=== PATIENT | male | born 1990 | race Caucasian/White ===

== ENCOUNTER 2021-01-04 19:21 | Emergency (ER) | payer SELFPAY ==
[~2021-01-04] VITALS: Ht 175.3 cm; Wt 81.8 kg
[2021-01-04] MEDS ORDERED: OLANZapine 5 MG TABLET PO ONE (20:30)
[2021-01-04 20:43] LABS: BASOPHILS % (AUTO) 0.5 % (0.0-2.0); EOSINOPHILS % (AUTO) 1.1 % (1.0-6.0); HEMATOCRIT 38.9 % (41-53); LYMPHOCYTES # (AUTO) 2.2 K/uL (1.0-4.8); LYMPHOCYTES % (AUTO) 15.9 % (22.0-44.0); MEAN CORPUSCULAR HEMOGLOBIN 28.8 pg (26.0-34.0); MEAN CORPUSCULAR HGB CONC 33.3 G/dL (31.0-37.0); MEAN CORPUSCULAR VOLUME 86 fL (80-100); MONOCYTES # (AUTO) 1.3 K/uL (0.1-1.0); MONOCYTES % (AUTO) 9.5 % (2.0-9.0); NEUTROPHILS # (AUTO) 10.1 K/uL (1.8-7.7); PLATELET COUNT (AUTO) 334 K/uL (150-450); RED CELL DISTRIBUTION WIDTH 13.4 % (11.5-14.5)
[2021-01-04 20:55] LABS: ANION GAP 12 mmol/L (8-16); CALCIUM, TOTAL 9.1 mg/dL (8.8-10.5); CARBON DIOXIDE 26 mmol/L (22-29); CHLORIDE 101 mmol/L (98-107); CREATININE 0.73 mg/dL (0.60-1.30); GLOMERULAR FILTR. RATE CALC > 60 mL/min (>60); GLUCOSE,RANDOM 107 mg/dL (70-110); POTASSIUM 3.5 mmol/L (3.5-5.1); SODIUM SERUM 139 mmol/L (136-145); UREA NITROGEN, BLOOD 10 mg/dL (7-18)
[2021-01-04 21:00] LABS: ALANINE AMINOTRANSFERASE 19 U/L (12-78); ALKALINE PHOSPHATASE 69 U/L (46-116); ASPARTATE AMINOTRANSFERASE 11 U/L (15-37); BILIRUBIN,TOTAL 0.2 mg/dL (0.1-1.0); TOTAL PROTEIN, SERUM 6.9 g/dL (6.4-8.2)
[2021-01-04 21:55] VITALS: BP 136/94
[2021-01-04] MEDS ORDERED: LORazepam 1 MG TABLET PO ONE (22:00)
== END 2021-01-04 22:00 | disposition home or self-care (01) ==
LOC: EMS 19:23
DX: F20.9 Schizophrenia, unspecified (principal); F22 Delusional disorders; G47.00 Insomnia, unspecified; F41.9 Anxiety disorder, unspecified; Z90.89 Acquired absence of other organs
CPT/HCPCS: 80053; 85025; 99284; G0480

== ENCOUNTER 2022-03-02 09:45 | Inpatient (IN) | payer MEDICAID, OTHER ==
[~2022-03-02] VITALS: Ht 175.3 cm; Wt 94.4 kg
[2022-03-02] MEDS ORDERED: OLAN5TAB52 PO (10:15)
[2022-03-02] MEDS ORDERED: DiphenhydrAMINE HCL 25 MG CAPSULE PO ONE (10:45)
[2022-03-02] MEDS ORDERED: OLANZapine 5 MG TABLET PO ONE (10:45)
[2022-03-02] MEDS ORDERED: LORazepam 2 MG TABLET PO ONE (10:45)
[2022-03-02] MEDS ORDERED: ZOLPIDEM TARTRATE 10 MG TABLET PO PRN (11:30)
[2022-03-02 12:24] LABS: COVID AG,FIA SOURCE NASAL SWAB
[2022-03-02] MEDS ORDERED: HALOPERIDOL LACTATE 5 MG/ML VIAL IM ONE (12:30)
[2022-03-02] MEDS ORDERED: DIAZEPAM 5 MG/ML 2 ML SYRINGE IM ONE (12:30)
[2022-03-02] MEDS ORDERED: DiphenhydrAMINE HCL 50 MG/ML VIAL IM ONE (12:30)
[2022-03-02 12:50] LABS: AMPHET/METH SCREEN,URINE NEGATIVE (NEGATIVE); BARBITURATE SCREEN, URINE NEGATIVE (NEGATIVE); BENZODIAZEPINES SCREEN,URINE NEGATIVE (NEGATIVE); CANNABINOID SCREEN,URINE NEGATIVE (NEGATIVE); COCAINE SCREEN,URINE NEGATIVE (NEGATIVE); METHADONE SCREEN, URINE NEGATIVE (NEGATIVE); OPIATE SCREEN,URINE NEGATIVE (NEGATIVE); PHENCYCLIDINE SCREEN,URINE NEGATIVE (NEGATIVE)
[2022-03-02 13:07] LABS: APPEARANCE,URINE HAZY (CLEAR); BILIRUBIN,URINE NEGATIVE (NEGATIVE); GLUCOSE, URINE (UA) NEGATIVE (NEGATIVE); LEUKOCYTE ESTERASE ,URINE NEGATIVE (NEGATIVE); NITRATE,URINE NEGATIVE (NEGATIVE); OCCULT BLOOD,URINE MODERATE (NEGATIVE); PROTEIN,URINE 30-70 mg/dL (NEGATIVE); UROBILINOGEN,URINE <=1.0 mg/dL (<=1.0)
[2022-03-02 13:18] LABS: BACTERIA,URINE Few /HPF (None Seen); SQUAMOUS EPITHELIAL CELL,UR Few /LPF (None Seen); URIC ACID CRYSTALS,URINE Many /LPF (None Seen); WBC,URINE None Seen /HPF (0-5)
[2022-03-02 13:46] LABS: EOSINOPHILS % (AUTO) 0.6 % (1.0-6.0); HEMATOCRIT 37.4 % (41-53); HEMOGLOBIN 12.6 g/dL (13.5-17.5); LYMPHOCYTES # (AUTO) 2.5 K/uL (1.0-4.8); LYMPHOCYTES % (AUTO) 20.4 % (22.0-44.0); MEAN CORPUSCULAR HEMOGLOBIN 28.6 pg (26.0-34.0); MEAN CORPUSCULAR HGB CONC 33.8 G/dL (31.0-37.0); MEAN CORPUSCULAR VOLUME 85 fL (80-100); MONOCYTES # (AUTO) 1.2 K/uL (0.1-1.0); MONOCYTES % (AUTO) 10.1 % (2.0-9.0); NEUTROPHILS # (AUTO) 8.4 K/uL (1.8-7.7); NEUTROPHILS % (AUTO) 67.9 % (40.0-70.0); PLATELET COUNT (AUTO) 375 K/uL (150-450); RED BLOOD CELL COUNT(AUTO) 4.41 MIL/uL (4.50-5.90); RED CELL DISTRIBUTION WIDTH 13.9 % (11.5-14.5)
[2022-03-02 13:55] LABS: ANION GAP 9 mmol/L (8-16); CARBON DIOXIDE 26 mmol/L (22-29); CHLORIDE 109 mmol/L (98-107); CREATININE 0.85 mg/dL (0.60-1.30); GLOMERULAR FILTR. RATE CALC > 60 mL/min (>60); GLUCOSE,RANDOM 116 mg/dL (70-110); POTASSIUM 3.6 mmol/L (3.5-5.1); SODIUM SERUM 144 mmol/L (136-145); UREA NITROGEN, BLOOD 17 mg/dL (7-18)
[2022-03-02 14:00] LABS: ALANINE AMINOTRANSFERASE 47 U/L (12-78); ALBUMIN 3.9 g/dL (3.4-5.0); ALKALINE PHOSPHATASE 70 U/L (46-116); ASPARTATE AMINOTRANSFERASE 29 U/L (15-37); BILIRUBIN,TOTAL 0.3 mg/dL (0.1-1.0); TOTAL PROTEIN, SERUM 7.3 g/dL (6.4-8.2)
[2022-03-02] MEDS: OLANZapine 5 MG TABLET PO ONE ×3 (17:20→17:32)
[2022-03-02] MEDS: LORazepam 1 MG TABLET PO ONE ×3 (17:20→17:31)
[2022-03-02 19:31] VITALS: BP 121/66
[2022-03-03] MEDS ORDERED: GuaiFENesin/D-METHORPHAN [SUGAR-FREE] 200-20MG/10 ML SYRUP UDCUP PO PRN (07:00)
[2022-03-03] MEDS ORDERED: CloNIDine HCL 0.1 MG TABLET PO PRN (07:00)
[2022-03-03] MEDS ORDERED: MAGNESIUM HYDROXIDE SUSPENSION 30 ML UDCUP PO PRN (07:00)
[2022-03-03] MEDS ORDERED: IBUPROFEN 400 MG TABLET PO PRN (07:00)
[2022-03-03] MEDS ORDERED: MAG HYDROX/AL HYDROX/SIMETH ES 30 ML SUSPENSION UDCUP PO PRN (07:00)
[2022-03-03] MEDS ORDERED: ACETAMINOPHEN 325 MG TABLET PO PRN (07:00)
[2022-03-03] MEDS ORDERED: PETROLATUM,WHITE 28 GM JELLY TP PRN (07:00)
[2022-03-03] MEDS ORDERED: NICOTINE 14 MG/24 HOUR PATCH TD PRN (07:00)
[2022-03-03] MEDS ORDERED: ONDANSETRON HCL 4 MG TABLET PO PRN (07:00)
[2022-03-03] MEDS ORDERED: ALBUTEROL SULFATE HFA 90 MCG/PUFF 8 GM INHALER IH PRN (07:00)
[2022-03-03] MEDS ORDERED: DOCUSATE SODIUM 100 MG CAPSULE PO PRN (07:00)
[2022-03-03] MEDS ORDERED: LOPERAMIDE HCL 2 MG CAPSULE PO PRN (07:00)
[2022-03-03] MEDS: LORazepam 2 MG TABLET PO PRN ×2 (08:18→19:10)
[2022-03-03 13:07] VITALS: BP 142/79
[2022-03-03 19:10] VITALS: BP 142/80
[2022-03-03] MEDS: DIVALPROEX SODIUM 500 MG DR TABLET PO SCH (20:04)
[2022-03-03] MEDS: OLANZapine 5 MG TABLET PO SCH (20:04)
[2022-03-04] MEDS: LORazepam 2 MG TABLET PO PRN (05:53)
[2022-03-04 08:00] VITALS: BP 114/65
[2022-03-04] MEDS: DIVALPROEX SODIUM 500 MG DR TABLET PO SCH ×2 (08:22→20:11)
[2022-03-04] MEDS: OLANZapine 5 MG TABLET PO SCH ×2 (08:23→20:11)
[2022-03-04 16:31] VITALS: BP_SYST 130; BP_SYST 134; BP_DIAS 79; BP_DIAS 92
[2022-03-05] MEDS: LORazepam 2 MG TABLET PO PRN (04:19)
[2022-03-05] MEDS: DIVALPROEX SODIUM 500 MG DR TABLET PO SCH ×2 (07:39→20:08)
[2022-03-05] MEDS: OLANZapine 5 MG TABLET PO SCH ×2 (07:39→20:08)
[2022-03-05 08:05] VITALS: BP 153/123
[2022-03-05 16:06] VITALS: BP 116/71
[2022-03-06] MEDS: DIVALPROEX SODIUM 500 MG DR TABLET PO SCH ×2 (07:48→20:01)
[2022-03-06] MEDS: OLANZapine 5 MG TABLET PO SCH ×2 (07:48→20:01)
[2022-03-06 08:03] VITALS: BP 116/59
[2022-03-06 16:01] VITALS: BP 149/80
[2022-03-07 08:05] VITALS: BP 151/96
[2022-03-07] MEDS: OLANZapine 5 MG TABLET PO SCH ×2 (11:47→21:03)
[2022-03-07] MEDS: DIVALPROEX SODIUM 500 MG DR TABLET PO SCH ×2 (11:47→21:03)
[2022-03-07] MEDS: SERTRALINE HCL 50 MG TABLET PO SCH (12:07)
[2022-03-07 17:41] VITALS: BP 142/84
[2022-03-08 08:00] VITALS: BP 134/90
[2022-03-08] MEDS: OLANZapine 5 MG TABLET PO SCH ×2 (08:26→20:09)
[2022-03-08] MEDS: SERTRALINE HCL 50 MG TABLET PO SCH (08:26)
[2022-03-08] MEDS: LORazepam 2 MG TABLET PO PRN ×2 (08:26→19:00)
[2022-03-08] MEDS: DIVALPROEX SODIUM 500 MG DR TABLET PO SCH ×2 (08:26→20:09)
[2022-03-08 16:13] VITALS: BP 139/81
[2022-03-09 08:00] VITALS: BP 164/89
[2022-03-09] MEDS: DIVALPROEX SODIUM 500 MG DR TABLET PO SCH ×2 (08:03→20:09)
[2022-03-09] MEDS: OLANZapine 5 MG TABLET PO SCH ×2 (08:03→20:08)
[2022-03-09] MEDS: SERTRALINE HCL 50 MG TABLET PO SCH (08:03)
[2022-03-09] MEDS: LORazepam 2 MG TABLET PO PRN ×2 (08:03→19:30)
[2022-03-09 16:00] VITALS: BP 153/100
[2022-03-10 06:21] LABS: COVID AG,FIA SOURCE NASAL SWAB
[2022-03-10 08:05] VITALS: BP 134/84
[2022-03-10] MEDS: LORazepam 2 MG TABLET PO PRN ×2 (08:11→19:15)
[2022-03-10] MEDS: OLANZapine 5 MG TABLET PO SCH ×2 (08:11→20:15)
[2022-03-10] MEDS: SERTRALINE HCL 50 MG TABLET PO SCH (08:11)
[2022-03-10] MEDS: DIVALPROEX SODIUM 500 MG DR TABLET PO SCH ×2 (08:11→20:15)
[2022-03-10 16:42] VITALS: BP 146/84
[2022-03-11 08:04] VITALS: BP 130/80
[2022-03-11] MEDS: SERTRALINE HCL 50 MG TABLET PO SCH (10:00)
[2022-03-11] MEDS: OLANZapine 5 MG TABLET PO SCH ×2 (10:00→20:13)
[2022-03-11] MEDS: DIVALPROEX SODIUM 500 MG DR TABLET PO SCH ×2 (10:00→20:13)
[2022-03-11] MEDS: QUEtiapine FUMARATE 100 MG TABLET PO PRN (15:16)
[2022-03-11 16:21] VITALS: BP 146/89
[2022-03-12 08:09] VITALS: BP 120/75
[2022-03-12] MEDS: SERTRALINE HCL 50 MG TABLET PO SCH (08:59)
[2022-03-12] MEDS: OLANZapine 5 MG TABLET PO SCH (08:59)
[2022-03-12] MEDS: DIVALPROEX SODIUM 500 MG DR TABLET PO SCH (08:59)
[2022-03-12] MEDS: QUEtiapine FUMARATE 100 MG TABLET PO PRN (09:48)
[2022-03-12 16:15] VITALS: BP 133/81
== END 2022-03-12 18:20 | disposition home or self-care (01) | DRG 750 ==
LOC: EMS 09:46 → 3EI 16:56 → 3EC 03-03 19:48
PROVIDERS: ADMIT Psychiatry & Neurology Psychiatry; ATTEND Psychiatry & Neurology Psychiatry
DX: F25.0 Schizoaffective disorder, bipolar type (principal); D64.9 Anemia, unspecified; D72.829 Elevated white blood cell count, unspecified; E66.9 Obesity, unspecified; E78.00 Pure hypercholesterolemia, unspecified; Z20.822 Contact with and (suspected) exposure to COVID-19; R73.9 Hyperglycemia, unspecified; Z68.30 Body mass index [BMI] 30.0-30.9, adult
CPT/HCPCS: 80053; 80164; 81001; 85025; 99291; G0480; J1200; J1630

== ENCOUNTER 2022-03-26 19:31 | Emergency (ER) | payer MEDICAID, OTHER ==
[~2022-03-26] VITALS: Ht 175.3 cm; Wt 96.3 kg
[2022-03-26] MEDS ORDERED: OLANZapine 5 MG TABLET PO ONE (21:15)
[2022-03-26] MEDS ORDERED: SERTRALINE HCL 50 MG TABLET PO ONE (21:15)
[2022-03-26 21:17] LABS: COVID AG,FIA SOURCE NASOPHARYNGEAL
[2022-03-26 21:20] LABS: BASOPHILS % (AUTO) 0.4 % (0.0-2.0); EOSINOPHILS % (AUTO) 0.2 % (1.0-6.0); HEMATOCRIT 41.7 % (41-53); HEMOGLOBIN 13.9 g/dL (13.5-17.5); LYMPHOCYTES # (AUTO) 1.8 K/uL (1.0-4.8); LYMPHOCYTES % (AUTO) 11.7 % (22.0-44.0); MEAN CORPUSCULAR HEMOGLOBIN 28.4 pg (26.0-34.0); MEAN CORPUSCULAR HGB CONC 33.4 G/dL (31.0-37.0); MEAN CORPUSCULAR VOLUME 85 fL (80-100); MONOCYTES # (AUTO) 0.8 K/uL (0.1-1.0); MONOCYTES % (AUTO) 5.3 % (2.0-9.0); NEUTROPHILS # (AUTO) 12.6 K/uL (1.8-7.7); NEUTROPHILS % (AUTO) 82.4 % (40.0-70.0); PLATELET COUNT (AUTO) 281 K/uL (150-450); RED BLOOD CELL COUNT(AUTO) 4.91 MIL/uL (4.50-5.90); RED CELL DISTRIBUTION WIDTH 13.8 % (11.5-14.5)
[2022-03-26 21:27] LABS: ANION GAP 16 mmol/L (8-16); CALCIUM, TOTAL 9.7 mg/dL (8.8-10.5); CARBON DIOXIDE 22 mmol/L (22-29); CHLORIDE 102 mmol/L (98-107); CREATININE 0.93 mg/dL (0.60-1.30); GLUCOSE,RANDOM 117 mg/dL (70-110); POTASSIUM 3.2 mmol/L (3.5-5.1); SODIUM SERUM 140 mmol/L (136-145); UREA NITROGEN, BLOOD 9 mg/dL (7-18)
[2022-03-26 21:33] LABS: GLOMERULAR FILTR. RATE CALC > 60 mL/min (>60)
[2022-03-26 21:34] LABS: ALANINE AMINOTRANSFERASE 29 U/L (12-78); ALBUMIN 4.5 g/dL (3.4-5.0); ALKALINE PHOSPHATASE 80 U/L (46-116); ASPARTATE AMINOTRANSFERASE 15 U/L (15-37); BILIRUBIN,TOTAL 0.2 mg/dL (0.1-1.0); TOTAL PROTEIN, SERUM 8.2 g/dL (6.4-8.2)
[2022-03-26 23:02] VITALS: BP 146/76
[2022-04-11] MEDS ORDERED: OLAN5TAB52 PO (05:12)
[2022-04-11] MEDS ORDERED: SERT-440 PO (05:12)
[2022-04-11] MEDS ORDERED: DIVA-112 PO (05:12)
== END 2022-03-26 23:29 | disposition home or self-care (01) ==
LOC: EMS 19:32
DX: F20.9 Schizophrenia, unspecified (principal); Z20.822 Contact with and (suspected) exposure to COVID-19
CPT/HCPCS: 99285; 87426; 80053; 85025; 36415; G0480

== ENCOUNTER 2022-03-27 11:48 | Inpatient (IN) | payer MEDICAID, OTHER ==
[~2022-03-27] VITALS: Ht 175.3 cm; Wt 94.9 kg
[2022-03-27 15:37] LABS: BASOPHILS % (AUTO) 0.2 % (0.0-2.0); EOSINOPHILS % (AUTO) 0.1 % (1.0-6.0); HEMATOCRIT 43.2 % (41-53); HEMOGLOBIN 14.3 g/dL (13.5-17.5); LYMPHOCYTES # (AUTO) 1.4 K/uL (1.0-4.8); LYMPHOCYTES % (AUTO) 7.2 % (22.0-44.0); MEAN CORPUSCULAR HEMOGLOBIN 28.2 pg (26.0-34.0); MEAN CORPUSCULAR VOLUME 85 fL (80-100); NEUTROPHILS # (AUTO) 17.1 K/uL (1.8-7.7); PLATELET COUNT (AUTO) 322 K/uL (150-450); RED BLOOD CELL COUNT(AUTO) 5.06 MIL/uL (4.50-5.90); RED CELL DISTRIBUTION WIDTH 13.9 % (11.5-14.5)
[2022-03-27 15:38] LABS: NEUTROPHILS % (AUTO) 87.5 % (40.0-70.0)
[2022-03-27 15:41] LABS: ANION GAP 12 mmol/L (8-16); CALCIUM, TOTAL 9.8 mg/dL (8.8-10.5); CARBON DIOXIDE 24 mmol/L (22-29); CHLORIDE 99 mmol/L (98-107); CREATININE 0.91 mg/dL (0.60-1.30); GLUCOSE,RANDOM 115 mg/dL (70-110); POTASSIUM 3.6 mmol/L (3.5-5.1); SODIUM SERUM 135 mmol/L (136-145); UREA NITROGEN, BLOOD 12 mg/dL (7-18)
[2022-03-27 15:45] LABS: GLOMERULAR FILTR. RATE CALC > 60 mL/min (>60)
[2022-03-27 15:47] LABS: ALANINE AMINOTRANSFERASE 30 U/L (12-78); ALBUMIN 4.7 g/dL (3.4-5.0); ALKALINE PHOSPHATASE 86 U/L (46-116); ASPARTATE AMINOTRANSFERASE 18 U/L (15-37); BILIRUBIN,TOTAL 0.5 mg/dL (0.1-1.0); TOTAL PROTEIN, SERUM 8.7 g/dL (6.4-8.2)
[2022-03-27 15:48] LABS: PLATELET MORPHOLOGY COMMENT GIANT PLTS PRESENT
[2022-03-27 16:09] LABS: COVID AG,FIA SOURCE NASOPHARYNGEAL
[2022-03-27] MEDS ORDERED: HALOPERIDOL LACTATE 5 MG/ML VIAL IM ONE (17:30)
[2022-03-27] MEDS ORDERED: DiphenhydrAMINE HCL 50 MG/ML VIAL IM ONE (17:30)
[2022-03-27] MEDS ORDERED: LORazepam 1 MG TABLET PO ONE (17:30)
[2022-03-27] MEDS: HALOPERIDOL 5 MG TABLET PO PRN (20:00)
[2022-03-27] MEDS: LORazepam 2 MG TABLET PO PRN (20:00)
[2022-03-27 21:26] VITALS: BP 119/60
[2022-03-28] MEDS ORDERED: NICOTINE 14 MG/24 HOUR PATCH TD PRN (06:15)
[2022-03-28] MEDS ORDERED: CloNIDine HCL 0.1 MG TABLET PO PRN (06:15)
[2022-03-28] MEDS ORDERED: ALBUTEROL SULFATE HFA 90 MCG/PUFF 8 GM INHALER IH PRN (06:15)
[2022-03-28] MEDS ORDERED: MAG HYDROX/AL HYDROX/SIMETH ES 30 ML SUSPENSION UDCUP PO PRN (06:15)
[2022-03-28] MEDS ORDERED: ONDANSETRON HCL 4 MG TABLET PO PRN (06:15)
[2022-03-28] MEDS ORDERED: MAGNESIUM HYDROXIDE SUSPENSION 30 ML UDCUP PO PRN (06:15)
[2022-03-28] MEDS ORDERED: GuaiFENesin/D-METHORPHAN [SUGAR-FREE] 200-20MG/10 ML SYRUP UDCUP PO PRN (06:15)
[2022-03-28] MEDS ORDERED: PETROLATUM,WHITE 28 GM JELLY TP PRN (06:15)
[2022-03-28] MEDS ORDERED: ACETAMINOPHEN 325 MG TABLET PO PRN (06:15)
[2022-03-28] MEDS ORDERED: IBUPROFEN 400 MG TABLET PO PRN (06:15)
[2022-03-28] MEDS ORDERED: DOCUSATE SODIUM 100 MG CAPSULE PO PRN (06:15)
[2022-03-28] MEDS: HALOPERIDOL 5 MG TABLET PO PRN ×3 (06:50→16:34)
[2022-03-28] MEDS: LORazepam 2 MG TABLET PO PRN ×3 (06:50→16:34)
[2022-03-28] MEDS: BACITRACIN 28 GM OINTMENT TP SCH ×3 (08:24→16:34)
[2022-03-28] MEDS: OLANZapine 5 MG TABLET PO SCH ×2 (09:51→20:30)
[2022-03-28] MEDS: SERTRALINE HCL 50 MG TABLET PO SCH (09:51)
[2022-03-28 13:30] VITALS: BP 116/74
[2022-03-28] MEDS: DIVALPROEX SODIUM 500 MG DR TABLET PO SCH (20:30)
[2022-03-28] MEDS: ZOLPIDEM TARTRATE 10 MG TABLET PO PRN (20:30)
[2022-03-28] MEDS: LOPERAMIDE HCL 2 MG CAPSULE PO PRN (23:38)
[2022-03-29] VITALS: BP 109/67
[2022-03-29 06:50] LABS: APPEARANCE,URINE TURBID (CLEAR); BILIRUBIN,URINE NEGATIVE (NEGATIVE); GLUCOSE, URINE (UA) NEGATIVE (NEGATIVE); LEUKOCYTE ESTERASE ,URINE SMALL (NEGATIVE); NITRATE,URINE NEGATIVE (NEGATIVE); OCCULT BLOOD,URINE NEGATIVE (NEGATIVE); PH,URINE 6.5 (5.0-8.0); PROTEIN,URINE 30-70 mg/dL (NEGATIVE); SPECIFIC GRAVITIY, URINE 1.033 (1.003-1.030); UROBILINOGEN,URINE <=1.0 mg/dL (<=1.0)
[2022-03-29] MEDS: LOPERAMIDE HCL 2 MG CAPSULE PO PRN ×5 (06:54→22:19)
[2022-03-29 07:06] LABS: RBC,URINE None Seen /HPF (0-2)
[2022-03-29 07:07] LABS: AMORPHOUS SEDIMENT,UR Many /LPF (None Seen); BACTERIA,URINE None Seen /HPF (None Seen)
[2022-03-29 07:21] LABS: AMPHET/METH SCREEN,URINE NEGATIVE (NEGATIVE); BARBITURATE SCREEN, URINE NEGATIVE (NEGATIVE); BENZODIAZEPINES SCREEN,URINE NEGATIVE (NEGATIVE); CANNABINOID SCREEN,URINE NEGATIVE (NEGATIVE); COCAINE SCREEN,URINE NEGATIVE (NEGATIVE); METHADONE SCREEN, URINE NEGATIVE (NEGATIVE); OPIATE SCREEN,URINE NEGATIVE (NEGATIVE)
[2022-03-29 07:23] LABS: PHENCYCLIDINE SCREEN,URINE NEGATIVE (NEGATIVE)
[2022-03-29 08:27] VITALS: BP 133/77
[2022-03-29] MEDS: LORazepam 2 MG TABLET PO PRN ×2 (08:34→12:56)
[2022-03-29] MEDS: OLANZapine 5 MG TABLET PO SCH ×2 (08:34→21:00)
[2022-03-29] MEDS: DIVALPROEX SODIUM 500 MG DR TABLET PO SCH ×2 (08:34→21:00)
[2022-03-29] MEDS: HALOPERIDOL 5 MG TABLET PO PRN ×2 (08:34→12:56)
[2022-03-29] MEDS: SERTRALINE HCL 50 MG TABLET PO SCH (08:34)
[2022-03-29] MEDS: BACITRACIN 28 GM OINTMENT TP SCH ×3 (08:35→16:24)
[2022-03-29 21:32] VITALS: BP 133/79
[2022-03-29] MEDS ORDERED: LOPERAMIDE HCL 2 MG CAPSULE PO PRN (23:45)
[2022-03-30 04:35] VITALS: BP 145/89
[2022-03-30] MEDS: BACITRACIN 28 GM OINTMENT TP SCH ×4 (10:00→17:11)
[2022-03-30] MEDS: OLANZapine 5 MG TABLET PO SCH ×2 (12:50→20:58)
[2022-03-30] MEDS: DIVALPROEX SODIUM 500 MG DR TABLET PO SCH ×2 (12:50→20:58)
[2022-03-30] MEDS: SERTRALINE HCL 50 MG TABLET PO SCH (12:51)
[2022-03-30 13:55] VITALS: BP 125/64
[2022-03-30 20:30] VITALS: BP 123/69
[2022-03-30] MEDS: LORazepam 2 MG TABLET PO PRN (20:58)
[2022-03-31] MEDS: OLANZapine 5 MG TABLET PO SCH ×2 (08:25→20:25)
[2022-03-31] MEDS: DIVALPROEX SODIUM 500 MG DR TABLET PO SCH ×2 (08:25→20:25)
[2022-03-31] MEDS: LORazepam 2 MG TABLET PO PRN ×2 (08:25→20:25)
[2022-03-31] MEDS: HALOPERIDOL 5 MG TABLET PO PRN (08:25)
[2022-03-31] MEDS: BACITRACIN 28 GM OINTMENT TP SCH ×3 (08:29→16:19)
[2022-03-31] MEDS: SERTRALINE HCL 50 MG TABLET PO SCH (08:51)
[2022-03-31 10:22] VITALS: BP 130/62
[2022-03-31 20:27] VITALS: BP 128/68
[2022-04-01 08:46] VITALS: BP 129/60
[2022-04-01] MEDS: BACITRACIN 28 GM OINTMENT TP SCH ×3 (09:03→17:00)
[2022-04-01] MEDS: SERTRALINE HCL 50 MG TABLET PO SCH (09:03)
[2022-04-01] MEDS: DIVALPROEX SODIUM 500 MG DR TABLET PO SCH ×2 (09:03→20:25)
[2022-04-01] MEDS: OLANZapine 5 MG TABLET PO SCH ×2 (09:03→20:25)
[2022-04-01] MEDS: LORazepam 2 MG TABLET PO PRN ×2 (09:04→20:25)
[2022-04-01 20:18] VITALS: BP 120/66
[2022-04-01] MEDS: ZOLPIDEM TARTRATE 10 MG TABLET PO PRN (20:42)
[2022-04-02 08:30] VITALS: BP 117/70
[2022-04-02] MEDS: OLANZapine 5 MG TABLET PO SCH ×2 (08:36→20:44)
[2022-04-02] MEDS: DIVALPROEX SODIUM 500 MG DR TABLET PO SCH ×2 (08:36→20:44)
[2022-04-02] MEDS: SERTRALINE HCL 50 MG TABLET PO SCH (08:36)
[2022-04-02] MEDS: BACITRACIN 28 GM OINTMENT TP SCH ×3 (08:37→16:56)
[2022-04-02] MEDS: HALOPERIDOL 5 MG TABLET PO PRN (17:01)
[2022-04-02] MEDS: LORazepam 2 MG TABLET PO PRN (17:01)
[2022-04-02 20:12] VITALS: BP 120/62
[2022-04-02] MEDS: ZOLPIDEM TARTRATE 10 MG TABLET PO PRN (20:44)
[2022-04-03 07:06] LABS: BASOPHILS % (AUTO) 0.8 % (0.0-2.0); HEMATOCRIT 40.7 % (41-53); HEMOGLOBIN 13.6 g/dL (13.5-17.5); LYMPHOCYTES # (AUTO) 2.8 K/uL (1.0-4.8); LYMPHOCYTES % (AUTO) 33.3 % (22.0-44.0); MEAN CORPUSCULAR HEMOGLOBIN 28.7 pg (26.0-34.0); MEAN CORPUSCULAR HGB CONC 33.3 G/dL (31.0-37.0); MEAN CORPUSCULAR VOLUME 86 fL (80-100); MONOCYTES # (AUTO) 0.5 K/uL (0.1-1.0); MONOCYTES % (AUTO) 6.5 % (2.0-9.0); NEUTROPHILS # (AUTO) 4.5 K/uL (1.8-7.7); NEUTROPHILS % (AUTO) 54.4 % (40.0-70.0); PLATELET COUNT (AUTO) 252 K/uL (150-450); RED BLOOD CELL COUNT(AUTO) 4.72 MIL/uL (4.50-5.90); RED CELL DISTRIBUTION WIDTH 13.8 % (11.5-14.5)
[2022-04-03] MEDS: OLANZapine 5 MG TABLET PO SCH ×2 (08:21→20:56)
[2022-04-03] MEDS: DIVALPROEX SODIUM 500 MG DR TABLET PO SCH ×2 (08:21→20:56)
[2022-04-03] MEDS: SERTRALINE HCL 50 MG TABLET PO SCH (08:21)
[2022-04-03] MEDS: LORazepam 2 MG TABLET PO PRN (08:21)
[2022-04-03] MEDS: BACITRACIN 28 GM OINTMENT TP SCH ×3 (08:21→17:01)
[2022-04-03 08:35] VITALS: BP 109/64
[2022-04-03] MEDS ORDERED: SERTRALINE HCL 50 MG TABLET PO ONE (11:00)
[2022-04-03] MEDS: HALOPERIDOL 5 MG TABLET PO PRN (11:35)
[2022-04-03 15:46] LABS: GLUCOMETER DEV NAME(LOC) POC.BV
[2022-04-03 20:37] VITALS: BP 129/74
[2022-04-03] MEDS: ZOLPIDEM TARTRATE 10 MG TABLET PO PRN (20:56)
[2022-04-04] MEDS: DIVALPROEX SODIUM 500 MG DR TABLET PO SCH ×2 (09:05→20:44)
[2022-04-04] MEDS: LORazepam 2 MG TABLET PO PRN ×2 (09:06→18:13)
[2022-04-04] MEDS: SERTRALINE HCL 100 MG TABLET PO SCH (09:06)
[2022-04-04] MEDS: OLANZapine 5 MG TABLET PO SCH ×2 (09:10→20:44)
[2022-04-04] MEDS: BACITRACIN 28 GM OINTMENT TP SCH ×3 (09:10→17:03)
[2022-04-04 09:42] VITALS: BP 125/77
[2022-04-04] MEDS: HALOPERIDOL 5 MG TABLET PO PRN (18:13)
[2022-04-04 20:17] VITALS: BP 134/89
[2022-04-04] MEDS: ZOLPIDEM TARTRATE 10 MG TABLET PO PRN (20:45)
[2022-04-05] MEDS: BACITRACIN 28 GM OINTMENT TP SCH ×3 (08:23→16:57)
[2022-04-05] MEDS: DIVALPROEX SODIUM 500 MG DR TABLET PO SCH ×2 (08:23→20:14)
[2022-04-05] MEDS: SERTRALINE HCL 100 MG TABLET PO SCH (08:23)
[2022-04-05] MEDS: LORazepam 2 MG TABLET PO PRN ×2 (08:23→20:14)
[2022-04-05] MEDS: OLANZapine 5 MG TABLET PO SCH ×2 (08:23→20:14)
[2022-04-05 08:27] VITALS: BP 109/65
[2022-04-05 20:00] VITALS: BP 106/64
[2022-04-06 08:06] VITALS: BP 125/82
[2022-04-06] MEDS: SERTRALINE HCL 100 MG TABLET PO SCH (08:22)
[2022-04-06] MEDS: OLANZapine 5 MG TABLET PO SCH ×2 (08:22→21:12)
[2022-04-06] MEDS: DIVALPROEX SODIUM 500 MG DR TABLET PO SCH ×2 (08:22→21:12)
[2022-04-06] MEDS: BACITRACIN 28 GM OINTMENT TP SCH ×3 (08:23→16:10)
[2022-04-06] MEDS: LORazepam 2 MG TABLET PO PRN (16:10)
[2022-04-07] VITALS: BP 117/68
[2022-04-07 09:32] VITALS: BP 111/70
[2022-04-07] MEDS: OLANZapine 5 MG TABLET PO SCH ×2 (09:53→20:51)
[2022-04-07] MEDS: DIVALPROEX SODIUM 500 MG DR TABLET PO SCH ×2 (09:53→20:51)
[2022-04-07] MEDS: BACITRACIN 28 GM OINTMENT TP SCH ×3 (09:53→16:39)
[2022-04-07] MEDS: SERTRALINE HCL 100 MG TABLET PO SCH (09:53)
[2022-04-07 17:40] VITALS: BP 109/61
[2022-04-07] MEDS: LORazepam 2 MG TABLET PO PRN (18:44)
[2022-04-07 23:37] VITALS: BP 105/60
[2022-04-08 08:16] VITALS: BP 104/60
[2022-04-08] MEDS: SERTRALINE HCL 100 MG TABLET PO SCH (08:26)
[2022-04-08] MEDS: DIVALPROEX SODIUM 500 MG DR TABLET PO SCH ×2 (08:26→20:25)
[2022-04-08] MEDS: OLANZapine 5 MG TABLET PO SCH ×2 (08:26→20:25)
[2022-04-08] MEDS: LORazepam 2 MG TABLET PO PRN ×2 (08:27→19:21)
[2022-04-08] MEDS: BACITRACIN 28 GM OINTMENT TP SCH ×3 (08:27→17:14)
[2022-04-08 20:23] VITALS: BP 126/82
[2022-04-08] MEDS: ZOLPIDEM TARTRATE 10 MG TABLET PO PRN (20:25)
[2022-04-09] MEDS: SERTRALINE HCL 100 MG TABLET PO SCH (08:12)
[2022-04-09] MEDS: DIVALPROEX SODIUM 500 MG DR TABLET PO SCH ×2 (08:12→20:26)
[2022-04-09] MEDS: BACITRACIN 28 GM OINTMENT TP SCH ×3 (08:12→16:56)
[2022-04-09] MEDS: OLANZapine 5 MG TABLET PO SCH ×2 (08:13→20:26)
[2022-04-09] MEDS: LORazepam 2 MG TABLET PO PRN ×2 (08:13→18:40)
[2022-04-09 08:17] VITALS: BP 114/78
[2022-04-09] MEDS: HALOPERIDOL 5 MG TABLET PO PRN (18:40)
[2022-04-09] MEDS: ZOLPIDEM TARTRATE 10 MG TABLET PO PRN (20:26)
[2022-04-09 20:44] VITALS: BP 122/72
[2022-04-10 08:19] VITALS: BP 100/60
[2022-04-10] MEDS: BACITRACIN 28 GM OINTMENT TP SCH ×3 (08:24→17:05)
[2022-04-10] MEDS: OLANZapine 5 MG TABLET PO SCH (08:24)
[2022-04-10] MEDS: DIVALPROEX SODIUM 500 MG DR TABLET PO SCH (08:25)
[2022-04-10] MEDS: SERTRALINE HCL 100 MG TABLET PO SCH (08:25)
[2022-04-10 08:40] VITALS: BP 108/70
[2022-04-10] MEDS: LORazepam 2 MG TABLET PO PRN (08:43)
[2022-04-10] MEDS ORDERED: OLAN5TAB52 PO (12:11)
[2022-04-10] MEDS ORDERED: SERT-162 PO (12:11)
[2022-04-10] MEDS ORDERED: DIVA-112 PO (12:11)
[2022-04-11] MEDS ORDERED: SERT-440 PO (05:12)
[2022-04-11] MEDS ORDERED: OLAN5TAB52 PO (05:12)
[2022-04-11] MEDS ORDERED: DIVA-112 PO (05:12)
== END 2022-04-10 18:26 | disposition home or self-care (01) | DRG 750 ==
LOC: EMS 11:48 → B3A 19:04 → UNDOADMIN 19:04 → B3A 21:04
PROVIDERS: ADMIT Psychiatry & Neurology Psychiatry; ATTEND Psychiatry & Neurology Psychiatry
DX: F25.0 Schizoaffective disorder, bipolar type (principal); E87.1 Hypo-osmolality and hyponatremia; R45.851 Suicidal ideations; Z20.822 Contact with and (suspected) exposure to COVID-19; D72.829 Elevated white blood cell count, unspecified; E78.5 Hyperlipidemia, unspecified; K21.9 Gastro-esophageal reflux disease without esophagitis; F10.10 Alcohol abuse, uncomplicated; F19.10 Other psychoactive substance abuse, uncomplicated; E78.00 Pure hypercholesterolemia, unspecified; Y90.9 Presence of alcohol in blood, level not specified; Z59.00 Homelessness unspecified; Z79.899 Other long term (current) drug therapy
CPT/HCPCS: 80053; 80164; 80307; 81001; 85025; 87081; 99285; G0480; J1200; J1630; Q0162

== ENCOUNTER 2022-03-30 00:37 | Emergency (ER) | payer MEDICAID, OTHER ==
[~2022-03-30] VITALS: Ht 172.7 cm; Wt 84.1 kg
[2022-03-30 01:26] LABS: COVID AG,FIA SOURCE NASOPHARYNGEAL
[2022-03-30 01:28] LABS: BASOPHILS % (AUTO) 1.1 % (0.0-2.0); EOSINOPHILS % (AUTO) 2.3 % (1.0-6.0); HEMATOCRIT 43.5 % (41-53); HEMOGLOBIN 14.6 g/dL (13.5-17.5); LYMPHOCYTES # (AUTO) 2.5 K/uL (1.0-4.8); LYMPHOCYTES % (AUTO) 20.2 % (22.0-44.0); MEAN CORPUSCULAR HEMOGLOBIN 28.5 pg (26.0-34.0); MEAN CORPUSCULAR HGB CONC 33.5 G/dL (31.0-37.0); MEAN CORPUSCULAR VOLUME 85 fL (80-100); MONOCYTES # (AUTO) 0.8 K/uL (0.1-1.0); MONOCYTES % (AUTO) 6.4 % (2.0-9.0); NEUTROPHILS # (AUTO) 8.7 K/uL (1.8-7.7); PLATELET COUNT (AUTO) 333 K/uL (150-450); RED BLOOD CELL COUNT(AUTO) 5.11 MIL/uL (4.50-5.90); RED CELL DISTRIBUTION WIDTH 13.6 % (11.5-14.5)
[2022-03-30 01:39] LABS: ANION GAP 11 mmol/L (8-16); CALCIUM, TOTAL 9.1 mg/dL (8.8-10.5); CARBON DIOXIDE 25 mmol/L (22-29); CHLORIDE 102 mmol/L (98-107); CREATININE 0.84 mg/dL (0.60-1.30); GLUCOSE,RANDOM 110 mg/dL (70-110); POTASSIUM 3.2 mmol/L (3.5-5.1); SODIUM SERUM 138 mmol/L (136-145); UREA NITROGEN, BLOOD 12 mg/dL (7-18)
[2022-03-30 01:42] LABS: GLOMERULAR FILTR. RATE CALC > 60 mL/min (>60)
[2022-03-30 01:45] LABS: ALANINE AMINOTRANSFERASE 23 U/L (12-78); ALBUMIN 4.3 g/dL (3.4-5.0); ALKALINE PHOSPHATASE 82 U/L (46-116); ASPARTATE AMINOTRANSFERASE 13 U/L (15-37); BILIRUBIN,TOTAL 0.3 mg/dL (0.1-1.0); TOTAL PROTEIN, SERUM 7.9 g/dL (6.4-8.2)
[2022-03-30] MEDS ORDERED: DIAZEPAM 5 MG TABLET PO ONE (05:15)
[2022-03-30 11:53] VITALS: BP 119/69
[2022-04-11] MEDS ORDERED: DIVA-112 PO (05:12)
[2022-04-11] MEDS ORDERED: OLAN5TAB52 PO (05:12)
[2022-04-11] MEDS ORDERED: SERT-440 PO (05:12)
== END 2022-03-30 12:20 | disposition home or self-care (01) ==
LOC: EMS 00:42
DX: R19.7 Diarrhea, unspecified (principal); F20.9 Schizophrenia, unspecified; Z20.822 Contact with and (suspected) exposure to COVID-19; Z90.49 Acquired absence of other specified parts of digestive tract
CPT/HCPCS: 74176; 80053; 85025; 87040; 99284; 99285

== ENCOUNTER 2022-12-16 18:17 | Inpatient (IN) | payer MEDICAID, OTHER ==
[~2022-12-16] VITALS: Ht 175.3 cm; Wt 110.3 kg
[~2022-12-16 18:17] MED LIST: DIVA-112 PO; OLAN5TAB52 PO; SERT-162 PO; SERT-440 PO
[2022-12-16 19:33] LABS: COVID AG,FIA SOURCE NASOPHARYNGEAL
[2022-12-16 19:34] LABS: BASOPHILS % (AUTO) 0.9 % (0.0-2.0); EOSINOPHILS % (AUTO) 0.9 % (1.0-6.0); HEMOGLOBIN 15.4 g/dL (13.5-17.5); LYMPHOCYTES # (AUTO) 2.3 K/uL (1.0-4.8); LYMPHOCYTES % (AUTO) 16.2 % (22.0-44.0); MEAN CORPUSCULAR HEMOGLOBIN 26.6 pg (26.0-34.0); MEAN CORPUSCULAR HGB CONC 32.8 G/dL (31.0-37.0); MEAN CORPUSCULAR VOLUME 81 fL (80-100); MONOCYTES # (AUTO) 0.8 K/uL (0.1-1.0); MONOCYTES % (AUTO) 5.7 % (2.0-9.0); NEUTROPHILS % (AUTO) 76.3 % (40.0-70.0); PLATELET COUNT (AUTO) 350 K/uL (150-450); RED CELL DISTRIBUTION WIDTH 14.5 % (11.5-14.5)
[2022-12-16 19:43] LABS: ANION GAP 9 mmol/L (8-16); CALCIUM, TOTAL 9.9 mg/dL (8.8-10.5); CARBON DIOXIDE 25 mmol/L (22-29); CHLORIDE 104 mmol/L (98-107); CREATININE 1.12 mg/dL (0.60-1.30); GLOMERULAR FILTR. RATE CALC > 60 mL/min (>60); GLUCOSE,RANDOM 147 mg/dL (70-110); POTASSIUM 3.7 mmol/L (3.5-5.1); SODIUM SERUM 138 mmol/L (136-145); UREA NITROGEN, BLOOD 15 mg/dL (7-18)
[2022-12-16 19:49] LABS: ALANINE AMINOTRANSFERASE 32 U/L (12-78); ALBUMIN 4.5 g/dL (3.4-5.0); ALKALINE PHOSPHATASE 108 U/L (46-116); ASPARTATE AMINOTRANSFERASE 18 U/L (15-37); BILIRUBIN,TOTAL 0.2 mg/dL (0.1-1.0); TOTAL PROTEIN, SERUM 8.4 g/dL (6.4-8.2)
[2022-12-16 20:00] LABS: VALPROIC ACID < 3 mcg/mL (50-100)
[2022-12-16] MEDS ORDERED: HALOPERIDOL 5 MG TABLET PO PRN (20:00)
[2022-12-16] MEDS: LORazepam 2 MG TABLET PO PRN (22:25)
[2022-12-16] MEDS: ZOLPIDEM TARTRATE 10 MG TABLET PO PRN (22:25)
[2022-12-16] MEDS ORDERED: CloNIDine HCL 0.1 MG TABLET PO PRN (22:45)
[2022-12-17 00:36] VITALS: BP 130/75
[2022-12-17 08:01] VITALS: BP 145/85
[2022-12-17 08:02] LABS: HEMOGLOBIN A1C 5.8 % (3.8-5.6)
[2022-12-17] MEDS ORDERED: HALOPERIDOL LACTATE 5 MG/ML VIAL ONE (08:13)
[2022-12-17] MEDS ORDERED: LORazepam 2 MG/ML VIAL ONE (08:13)
[2022-12-17] MEDS ORDERED: DiphenhydrAMINE HCL 50 MG/ML VIAL ONE (08:13)
[2022-12-17 08:16] LABS: CHOL/HDL RATIO 5.4 (4.2-7.3); THYROID STIMULATING HORMONE 3.12 uIU/mL (0.36-3.74)
[2022-12-17] MEDS ORDERED: LORazepam 2 MG/ML VIAL IM ONE ×2 (08:30)
[2022-12-17] MEDS ORDERED: DiphenhydrAMINE HCL 50 MG/ML VIAL IM ONE ×2 (08:30)
[2022-12-17] MEDS ORDERED: HALOPERIDOL LACTATE 5 MG/ML VIAL IM ONE ×2 (08:30)
[2022-12-17] MEDS ORDERED: GuaiFENesin/D-METHORPHAN [SUGAR-FREE] 200-20MG/10 ML SYRUP UDCUP PO PRN (16:15)
[2022-12-17] MEDS ORDERED: TUBERCULIN, PURIFIED PROTEIN DERIVATIVE 5 TU/0.1 ML SYRINGE ID ONE (16:15)
[2022-12-17] MEDS ORDERED: LOPERAMIDE HCL 2 MG CAPSULE PO PRN (16:15)
[2022-12-17] MEDS ORDERED: PROMETHAZINE HCL 25 MG TABLET PO PRN (16:15)
[2022-12-17] MEDS ORDERED: MAG HYDROX/AL HYDROX/SIMETH ES 30 ML SUSPENSION UDCUP PO PRN (16:15)
[2022-12-17] MEDS ORDERED: ACETAMINOPHEN 325 MG TABLET PO PRN (16:15)
[2022-12-17] MEDS ORDERED: MAGNESIUM HYDROXIDE SUSPENSION 30 ML UDCUP PO PRN (16:15)
[2022-12-17] MEDS: LORazepam 2 MG TABLET PO PRN ×2 (17:05→21:05)
[2022-12-17] MEDS: THIAMINE 100 MG TABLET PO SCH (17:05)
[2022-12-17] MEDS: HydrOXYzine PAMOATE 50 MG CAPSULE PO PRN (17:08)
[2022-12-17 20:04] VITALS: BP 140/82
[2022-12-17] MEDS ORDERED: OLANZapine 5 MG RAPDIS TABLET PO SCH (21:00)
[2022-12-17] MEDS: MELATONIN 5 MG TABLET PO SCH (21:01)
[2022-12-17] MEDS: ZOLPIDEM TARTRATE 10 MG TABLET PO PRN (21:01)
[2022-12-18] MEDS ORDERED: HALOPERIDOL LACTATE 5 MG/ML VIAL ONE (07:36)
[2022-12-18] MEDS ORDERED: LORazepam 2 MG/ML VIAL ONE (07:36)
[2022-12-18] MEDS ORDERED: DiphenhydrAMINE HCL 50 MG/ML VIAL ONE (07:37)
[2022-12-18] MEDS ORDERED: LORazepam 2 MG/ML VIAL IM ONE (07:45)
[2022-12-18] MEDS ORDERED: DiphenhydrAMINE HCL 50 MG/ML VIAL IM ONE (07:45)
[2022-12-18] MEDS ORDERED: HALOPERIDOL LACTATE 5 MG/ML VIAL IM ONE (07:45)
[2022-12-18 08:06] LABS: HEPATITIS C AB (EIA) Non Reactive (Non Reactive)
[2022-12-18 08:08] LABS: HEMOGLOBIN A1C 5.8 % (3.8-5.6)
[2022-12-18] MEDS: MULTIVITAMINS WITH MINERALS, THERAPEUTIC TABLET PO SCH (08:08)
[2022-12-18] MEDS: OMEGA-3/DHA/EPA/FISH OIL 1,000 MG CAPSULE PO SCH (08:08)
[2022-12-18] MEDS: DIVALPROEX SODIUM 500 MG ER TABLET PO SCH (08:08)
[2022-12-18] MEDS: THIAMINE 100 MG TABLET PO SCH ×2 (08:08→17:02)
[2022-12-18] MEDS: FOLIC ACID 1 MG TABLET PO SCH (08:08)
[2022-12-18] MEDS: NALTREXONE HCL 50 MG TABLET PO SCH (08:08)
[2022-12-18 08:27] LABS: CHOL/HDL RATIO 5.6 (4.2-7.3); FREE T4 (FREE THYROXINE) 0.93 ng/dL (0.76-1.46); THYROID STIMULATING HORMONE 2.5 uIU/mL (0.36-3.74)
[2022-12-18 08:29] VITALS: BP 116/83
[2022-12-18] MEDS ORDERED: FLUoxetine HCL 20 MG CAPSULE PO SCH (09:00)
[2022-12-18] MEDS: LORazepam 2 MG TABLET PO PRN ×2 (17:02→21:02)
[2022-12-18] MEDS: HydrOXYzine PAMOATE 50 MG CAPSULE PO PRN (17:02)
[2022-12-18 20:06] VITALS: BP 130/78
[2022-12-18] MEDS: OLANZapine 10 MG RAPDIS TABLET PO SCH (20:24)
[2022-12-18] MEDS: MELATONIN 5 MG TABLET PO SCH (20:24)
[2022-12-18] MEDS: ZOLPIDEM TARTRATE 10 MG TABLET PO PRN (21:02)
[2022-12-19] MEDS: NALTREXONE HCL 50 MG TABLET PO SCH (08:05)
[2022-12-19] MEDS: DIVALPROEX SODIUM 500 MG ER TABLET PO SCH (08:05)
[2022-12-19] MEDS: FOLIC ACID 1 MG TABLET PO SCH (08:05)
[2022-12-19] MEDS: OMEGA-3/DHA/EPA/FISH OIL 1,000 MG CAPSULE PO SCH (08:05)
[2022-12-19] MEDS: THIAMINE 100 MG TABLET PO SCH ×2 (08:05→16:14)
[2022-12-19] MEDS: MULTIVITAMINS WITH MINERALS, THERAPEUTIC TABLET PO SCH (08:05)
[2022-12-19 08:16] VITALS: BP 124/93
[2022-12-19] MEDS ORDERED: DiphenhydrAMINE HCL 50 MG/ML VIAL ONE (10:47)
[2022-12-19] MEDS ORDERED: HALOPERIDOL LACTATE 5 MG/ML VIAL ONE (10:47)
[2022-12-19] MEDS ORDERED: LORazepam 2 MG/ML VIAL ONE (10:47)
[2022-12-19] MEDS ORDERED: LORazepam 2 MG/ML VIAL IM ONE (11:00)
[2022-12-19] MEDS ORDERED: HALOPERIDOL LACTATE 5 MG/ML VIAL IM ONE (11:00)
[2022-12-19] MEDS ORDERED: DiphenhydrAMINE HCL 50 MG/ML VIAL IM ONE (11:00)
[2022-12-19] MEDS: LORazepam 2 MG TABLET PO PRN (16:14)
[2022-12-19 20:03] VITALS: BP 132/75
[2022-12-19] MEDS: MELATONIN 5 MG TABLET PO SCH (20:09)
[2022-12-19] MEDS: ZOLPIDEM TARTRATE 10 MG TABLET PO PRN (20:09)
[2022-12-19] MEDS: OLANZapine 10 MG RAPDIS TABLET PO SCH (20:10)
[2022-12-20] MEDS: OMEGA-3/DHA/EPA/FISH OIL 1,000 MG CAPSULE PO SCH (08:09)
[2022-12-20] MEDS: DIVALPROEX SODIUM 500 MG ER TABLET PO SCH (08:10)
[2022-12-20] MEDS: NALTREXONE HCL 50 MG TABLET PO SCH (08:10)
[2022-12-20] MEDS: FOLIC ACID 1 MG TABLET PO SCH (08:10)
[2022-12-20] MEDS: LORazepam 2 MG TABLET PO PRN ×2 (08:10→17:23)
[2022-12-20] MEDS: MULTIVITAMINS WITH MINERALS, THERAPEUTIC TABLET PO SCH (08:10)
[2022-12-20] MEDS: THIAMINE 100 MG TABLET PO SCH ×2 (08:10→17:23)
[2022-12-20 08:21] VITALS: BP 100/60
[2022-12-20] MEDS: OLANZapine 10 MG RAPDIS TABLET PO SCH (20:47)
[2022-12-20] MEDS: MELATONIN 5 MG TABLET PO SCH (20:47)
[2022-12-20] MEDS: LITHIUM CARBONATE 300 MG CAPSULE PO SCH (20:47)
[2022-12-20 21:22] VITALS: BP 134/88
[2022-12-21] MEDS: NALTREXONE HCL 50 MG TABLET PO SCH (08:02)
[2022-12-21] MEDS: THIAMINE 100 MG TABLET PO SCH ×2 (08:02→16:59)
[2022-12-21] MEDS: DIVALPROEX SODIUM 500 MG ER TABLET PO SCH (08:03)
[2022-12-21] MEDS: MULTIVITAMINS WITH MINERALS, THERAPEUTIC TABLET PO SCH (08:03)
[2022-12-21] MEDS: FOLIC ACID 1 MG TABLET PO SCH (08:03)
[2022-12-21] MEDS: LORazepam 2 MG TABLET PO PRN ×2 (08:03→20:08)
[2022-12-21] MEDS: OMEGA-3/DHA/EPA/FISH OIL 1,000 MG CAPSULE PO SCH (08:03)
[2022-12-21 08:04] VITALS: BP 130/74
[2022-12-21 20:02] VITALS: BP 128/70
[2022-12-21] MEDS: LITHIUM CARBONATE 300 MG CAPSULE PO SCH (20:07)
[2022-12-21] MEDS: OLANZapine 10 MG RAPDIS TABLET PO SCH (20:08)
[2022-12-21] MEDS: MELATONIN 5 MG TABLET PO SCH (20:08)
[2022-12-21] MEDS: ZOLPIDEM TARTRATE 10 MG TABLET PO PRN (20:09)
[2022-12-22 08:03] VITALS: BP 130/63
[2022-12-22] MEDS: DIVALPROEX SODIUM 500 MG ER TABLET PO SCH (08:24)
[2022-12-22] MEDS: NALTREXONE HCL 50 MG TABLET PO SCH (08:24)
[2022-12-22] MEDS: FOLIC ACID 1 MG TABLET PO SCH (08:24)
[2022-12-22] MEDS: OMEGA-3/DHA/EPA/FISH OIL 1,000 MG CAPSULE PO SCH (08:24)
[2022-12-22] MEDS: THIAMINE 100 MG TABLET PO SCH ×2 (08:28→16:03)
[2022-12-22] MEDS: MULTIVITAMINS WITH MINERALS, THERAPEUTIC TABLET PO SCH (08:28)
[2022-12-22] MEDS: SERTRALINE HCL 100 MG TABLET PO SCH (11:00)
[2022-12-22 16:10] VITALS: BP 120/83
[2022-12-22 20:32] VITALS: BP 120/83
[2022-12-22] MEDS: LITHIUM CARBONATE 300 MG CAPSULE PO SCH (20:55)
[2022-12-22] MEDS: OLANZapine 10 MG RAPDIS TABLET PO SCH (20:55)
[2022-12-22] MEDS: MELATONIN 5 MG TABLET PO SCH (20:56)
[2022-12-23] MEDS: DIVALPROEX SODIUM 500 MG ER TABLET PO SCH (08:14)
[2022-12-23] MEDS: MULTIVITAMINS WITH MINERALS, THERAPEUTIC TABLET PO SCH (08:15)
[2022-12-23] MEDS: THIAMINE 100 MG TABLET PO SCH ×2 (08:15→17:00)
[2022-12-23] MEDS: FOLIC ACID 1 MG TABLET PO SCH (08:15)
[2022-12-23] MEDS: OMEGA-3/DHA/EPA/FISH OIL 1,000 MG CAPSULE PO SCH (08:15)
[2022-12-23] MEDS: NALTREXONE HCL 50 MG TABLET PO SCH (08:15)
[2022-12-23] MEDS: SERTRALINE HCL 100 MG TABLET PO SCH (08:16)
[2022-12-23 09:44] VITALS: BP 134/84
[2022-12-23] MEDS ORDERED: DIVA500T53 PO (11:51)
[2022-12-23] MEDS ORDERED: OLAN10TA26 PO ×2 (11:52→14:03)
[2022-12-23] MEDS ORDERED: OMEG-135 PO ×2 (11:52→14:03)
[2022-12-23] MEDS ORDERED: NALT50TA6 PO (11:52)
[2022-12-23] MEDS ORDERED: MELA5TAB40 PO ×2 (11:55→14:03)
[2022-12-23] MEDS ORDERED: LITH300C3 PO ×2 (12:15→14:03)
[2022-12-23] MEDS ORDERED: NALT50TA PO (14:03)
[2022-12-23] MEDS ORDERED: DIVA500T69 PO (14:03)
== END 2022-12-23 17:07 | disposition home or self-care (01) | DRG 750 ==
LOC: EMS 18:20 → B3A 20:05
PROVIDERS: ADMIT Psychiatry & Neurology Psychiatry; ATTEND Psychiatry & Neurology Psychiatry
DX: F25.0 Schizoaffective disorder, bipolar type (principal); D64.9 Anemia, unspecified; Z20.822 Contact with and (suspected) exposure to COVID-19; E78.00 Pure hypercholesterolemia, unspecified; F41.9 Anxiety disorder, unspecified; K21.9 Gastro-esophageal reflux disease without esophagitis; I10 Essential (primary) hypertension; D72.829 Elevated white blood cell count, unspecified; F17.200 Nicotine dependence, unspecified, uncomplicated; F64.9 Gender identity disorder, unspecified; R73.9 Hyperglycemia, unspecified; J44.9 Chronic obstructive pulmonary disease, unspecified; Z90.49 Acquired absence of other specified parts of digestive tract; Z55.9 Problems related to education and literacy, unspecified; Z59.9 Problem related to housing and economic circumstances, unspecified; Z63.9 Problem related to primary support group, unspecified; Z65.3 Problems related to other legal circumstances
CPT/HCPCS: 80053; 80061; 80074; 80164; 83036; 84439; 84443; 85025; 86592; 99285; G0480; J1200; J1630; J2060; Q9967

== ENCOUNTER 2024-11-22 07:13 | Inpatient (IN) | payer MEDICAID ==
[~2024-11-22] VITALS: Ht 177.8 cm; Wt 47.6 kg
[~2024-11-22 07:13] MED LIST changes: -DIVA-112 PO; -OLAN5TAB52 PO; -SERT-440 PO
[2024-11-22] MEDS ORDERED: LUMA42CA PO (07:55)
[2024-11-22] MEDS ORDERED: RISP4TAB31 PO (07:55)
[2024-11-22 08:55] LABS: BASOPHILS % (AUTO) 0.7 % (0.0-2.0); EOSINOPHILS % (AUTO) 3.4 % (1.0-6.0); HEMATOCRIT 41.5 % (41-53); HEMOGLOBIN 13.6 g/dL (13.5-17.5); MEAN CORPUSCULAR HGB CONC 32.9 G/dL (31.0-37.0); MEAN CORPUSCULAR VOLUME 82 fL (80-100); MONOCYTES # (AUTO) 0.7 K/uL (0.1-1.0); MONOCYTES % (AUTO) 5.4 % (2.0-9.0); NEUTROPHILS # (AUTO) 10.1 K/uL (1.8-7.7); NEUTROPHILS % (AUTO) 75.5 % (40.0-70.0); PLATELET COUNT (AUTO) 379 K/uL (150-450); RED BLOOD CELL COUNT(AUTO) 5.05 MIL/uL (4.50-5.90); RED CELL DISTRIBUTION WIDTH 15.1 % (11.5-14.5); WHITE BLOOD COUNT (AUTO) 13.3 K/uL (4.5-11.0)
[2024-11-22] MEDS: RisperiDONE 1 MG TABLET PO ONE (08:58)
[2024-11-22] MEDS: LORazepam 2 MG TABLET PO ONE (08:58)
[2024-11-22 09:00] LABS: ANION GAP 10 mmol/L (8-16); CALCIUM, TOTAL 9.6 mg/dL (8.8-10.5); CARBON DIOXIDE 28 mmol/L (22-29); CHLORIDE 104 mmol/L (98-107); CREATININE 0.95 mg/dL (0.60-1.30); GLOMERULAR FILTR. RATE CALC > 60 mL/min (>60); GLUCOSE,RANDOM 80 mg/dL (70-110); POTASSIUM 4.3 mmol/L (3.5-5.1); SODIUM SERUM 142 mmol/L (136-145); UREA NITROGEN, BLOOD 11 mg/dL (7-18)
[2024-11-22] MEDS: SERTRALINE HCL 100 MG TABLET PO ONE (09:05)
[2024-11-22 09:14] LABS: ALCOHOL, BLOOD (SERUM) < 3 mg/dL (0-10); LITHIUM 1.37 mmol/L (0.60-1.20)
[2024-11-22] MEDS ORDERED: ZOLPIDEM TARTRATE 10 MG TABLET PO PRN (12:30)
[2024-11-22] MEDS ORDERED: TRIH2TAB3 PO (12:34)
[2024-11-22] MEDS ORDERED: LITH600C5 PO (12:34)
[2024-11-22] MEDS: MELATONIN 5 MG TABLET PO SCH (20:41)
[2024-11-22] MEDS: OLANZapine 5 MG RAPDIS TABLET PO SCH (20:41)
[2024-11-23] MEDS: OMEGA-3/DHA/EPA/FISH OIL 1,000 MG CAPSULE PO SCH (08:32)
[2024-11-23] MEDS: CloZAPine 25 MG TABLET PO SCH (08:33)
[2024-11-23 09:55] LABS: COVID AG,FIA SOURCE NASAL SWAB
[2024-11-23 10:11] LABS: SARS-COV2 (COVID) ANTIGEN,FIA Negative (Negative)
[2024-11-23 11:09] VITALS: BP 133/95; PULSE 87; RESP 18; TEMP 97.8; O2SAT 98
[2024-11-23] MEDS ORDERED: ACETAMINOPHEN 650 MG/20.3 ML SOLUTION UDCUP PO PRN (15:45)
[2024-11-23 16:25] VITALS: BP 122/68; PULSE 93; RESP 18; O2SAT 100
[2024-11-23] MEDS: IBUPROFEN 600 MG TABLET PO PRN (16:31)
[2024-11-23 17:27] VITALS: RESP 18
[2024-11-24 07:20] LABS: BASOPHILS % (AUTO) 1.1 % (0.0-2.0); EOSINOPHILS % (AUTO) 6.3 % (1.0-6.0); HEMATOCRIT 47.5 % (41-53); HEMOGLOBIN 15.8 g/dL (13.5-17.5); LYMPHOCYTES # (AUTO) 2.4 K/uL (1.0-4.8); LYMPHOCYTES % (AUTO) 24.7 % (22.0-44.0); MEAN CORPUSCULAR HEMOGLOBIN 27.4 pg (26.0-34.0); MEAN CORPUSCULAR HGB CONC 33.2 G/dL (31.0-37.0); MEAN CORPUSCULAR VOLUME 83 fL (80-100); MONOCYTES # (AUTO) 0.9 K/uL (0.1-1.0); NEUTROPHILS # (AUTO) 5.7 K/uL (1.8-7.7); NEUTROPHILS % (AUTO) 58.9 % (40.0-70.0); PLATELET COUNT (AUTO) 351 K/uL (150-450); RED BLOOD CELL COUNT(AUTO) 5.75 MIL/uL (4.50-5.90); RED CELL DISTRIBUTION WIDTH 15.1 % (11.5-14.5); WHITE BLOOD COUNT (AUTO) 9.7 K/uL (4.5-11.0)
[2024-11-24 07:29] LABS: HEMOGLOBIN A1C 5.3 % (3.8-5.6)
[2024-11-24 07:45] LABS: CHOL/HDL RATIO 6.9 (4.2-7.3); THYROID STIMULATING HORMONE 2.34 uIU/mL (0.36-3.74)
[2024-11-24] MEDS: CloZAPine 25 MG TABLET PO SCH ×2 (08:39→20:37)
[2024-11-24 14:08] VITALS: BP 122/76; PULSE 96; RESP 17; TEMP 97.6; O2SAT 99
[2024-11-24] MEDS: ACETAMINOPHEN 325 MG TABLET PO PRN (14:08)
[2024-11-24 15:08] VITALS: RESP 18
[2024-11-24 20:28] VITALS: BP 126/64; PULSE 100; RESP 18; TEMP 98.2; O2SAT 100
[2024-11-24] MEDS: DIVALPROEX SODIUM 500 MG ER TABLET PO SCH (20:36)
[2024-11-24] MEDS: LITHIUM CARBONATE 300 MG CAPSULE PO SCH (20:37)
[2024-11-25] MEDS: CloZAPine 25 MG TABLET PO SCH ×2 (10:56→20:59)
[2024-11-25 10:57] VITALS: BP 142/79; PULSE 89; RESP 17; TEMP 98
[2024-11-25 11:57] VITALS: BP 142/79; PULSE 89; RESP 18; TEMP 97.8
[2024-11-25 13:56] VITALS: BP 160/81; PULSE 100; RESP 18; TEMP 98.1; O2SAT 100
[2024-11-25] MEDS: OLANZapine 5 MG RAPDIS TABLET PO PRN (18:16)
[2024-11-25 20:32] VITALS: BP 125/78; PULSE 93; RESP 18; TEMP 97.4; O2SAT 99
[2024-11-25] MEDS: SERTRALINE HCL 100 MG TABLET PO SCH (20:59)
[2024-11-26] MEDS: CloZAPine 25 MG TABLET PO SCH (08:33)
[2024-11-26 08:44] LABS: LITHIUM 0.73 mmol/L (0.60-1.20)
[2024-11-26 08:45] VITALS: BP 153/65; PULSE 109; RESP 18; TEMP 98; O2SAT 100
[2024-11-26 21:06] VITALS: BP 141/82; PULSE 97; RESP 19; TEMP 97.9; O2SAT 100
[2024-11-27 08:57] VITALS: BP 168/95; PULSE 108; RESP 17; TEMP 97.7; O2SAT 96
[2024-11-27 21:21] VITALS: BP 149/96; PULSE 89; RESP 19; TEMP 97.5; O2SAT 98
[2024-11-28] MEDS: CloZAPine 25 MG TABLET PO SCH (08:12)
[2024-11-28 10:25] VITALS: BP 158/80; PULSE 92; RESP 17; TEMP 97.6; O2SAT 100
[2024-11-28 15:58] VITALS: BP 148/80; PULSE 89; RESP 18; TEMP 98.3; O2SAT 99
[2024-11-28 21:00] VITALS: BP 129/84; PULSE 85; RESP 18; TEMP 97.9
[2024-11-28] MEDS: CloZAPine 100 MG TABLET PO SCH (21:00)
[2024-11-29] MEDS: CloZAPine 25 MG TABLET PO SCH (08:45)
[2024-11-29 09:48] VITALS: BP 145/94; PULSE 98; RESP 18; TEMP 97.7; O2SAT 100
[2024-11-29 12:53] VITALS: BP 142/86; PULSE 97; RESP 17; TEMP 97.9; O2SAT 98
[2024-11-29] MEDS: CloZAPine 100 MG TABLET PO SCH (20:24)
[2024-11-29] MEDS: LITHIUM CARBONATE 300 MG TABLET PO SCH (20:25)
[2024-11-29 21:11] VITALS: BP 115/76; PULSE 87; RESP 18; TEMP 97.9
[2024-11-30] MEDS: CloZAPine 25 MG TABLET PO SCH (08:31)
[2024-11-30 12:54] VITALS: RESP 18
[2024-11-30 13:39] VITALS: BP 127/82; PULSE 92; RESP 17; TEMP 98.1; O2SAT 96
[2024-11-30] MEDS: CloZAPine 100 MG TABLET PO SCH (21:05)
[2024-11-30] MEDS: OLANZapine 10 MG RAPDIS TABLET PO SCH (21:06)
[2024-11-30 21:42] VITALS: BP 122/96; PULSE 87; RESP 18; TEMP 97.9; O2SAT 98
[2024-12-01] MEDS: CloZAPine 100 MG TABLET PO SCH (08:35)
[2024-12-01 09:39] VITALS: BP 143/98; PULSE 106; RESP 18; TEMP 97.9; O2SAT 98
[2024-12-01 09:49] LABS: BASOPHILS % (AUTO) 0.8 % (0.0-2.0); HEMATOCRIT 41.9 % (41-53); HEMOGLOBIN 13.7 g/dL (13.5-17.5); LYMPHOCYTES # (AUTO) 2.3 K/uL (1.0-4.8); LYMPHOCYTES % (AUTO) 24.8 % (22.0-44.0); MEAN CORPUSCULAR HEMOGLOBIN 27.2 pg (26.0-34.0); MEAN CORPUSCULAR HGB CONC 32.6 G/dL (31.0-37.0); MEAN CORPUSCULAR VOLUME 84 fL (80-100); MONOCYTES # (AUTO) 0.4 K/uL (0.1-1.0); MONOCYTES % (AUTO) 4.6 % (2.0-9.0); NEUTROPHILS % (AUTO) 63.8 % (40.0-70.0); PLATELET COUNT (AUTO) 282 K/uL (150-450); RED BLOOD CELL COUNT(AUTO) 5.02 MIL/uL (4.50-5.90); RED CELL DISTRIBUTION WIDTH 15.2 % (11.5-14.5); WHITE BLOOD COUNT (AUTO) 9.4 K/uL (4.5-11.0)
[2024-12-01] MEDS: LITHIUM CARBONATE 300 MG TABLET PO SCH (21:06)
[2024-12-01 21:31] VITALS: BP 139/76; PULSE 100; RESP 18; TEMP 97.2; O2SAT 99
[2024-12-02 08:28] VITALS: BP 130/85; PULSE 93; RESP 18; TEMP 97.4; O2SAT 98
[2024-12-02] MEDS ORDERED: BISACODYL 5 MG EC TABLET PO PRN (18:45)
[2024-12-02 20:33] VITALS: BP 128/79; PULSE 105; RESP 17; TEMP 97.4; O2SAT 99
[2024-12-02] MEDS: DOCUSATE SODIUM 250 MG CAPSULE PO SCH (20:37)
[2024-12-03] MEDS: CloZAPine 25 MG TABLET PO SCH (08:25)
[2024-12-03 08:43] VITALS: BP 120/90; PULSE 99; RESP 16; TEMP 97.9; O2SAT 99
[2024-12-03 08:45] VITALS: BP 120/90; PULSE 99; RESP 18; TEMP 97.9; O2SAT 98
[2024-12-03 14:07] LABS: CLOZAPINE & NORCLOZAPINE 289 ng/mL; NORCLOZAPINE 74 ng/mL (Not Estab.)
[2024-12-03 20:31] VITALS: BP 144/94; PULSE 99; RESP 18; TEMP 98.4; O2SAT 99
[2024-12-03] MEDS: CloZAPine 100 MG TABLET PO SCH (20:43)
[2024-12-04] MEDS: CloZAPine 25 MG TABLET PO SCH (08:17)
[2024-12-04 10:15] VITALS: BP 149/96; PULSE 81; RESP 18; TEMP 97.6; O2SAT 97
[2024-12-04 16:09] VITALS: BP 139/87; PULSE 78; RESP 19; TEMP 98; O2SAT 98
[2024-12-04 21:55] VITALS: BP 124/54; RESP 18; TEMP 98.4; O2SAT 100
[2024-12-04] MEDS ORDERED: DOCUSATE SODIUM 250 MG CAPSULE PO PRN (22:30)
[2024-12-04] MEDS: CloZAPine 100 MG TABLET PO SCH (22:39)
[2024-12-05] MEDS: MAGNESIUM CITRATE [LEMON] 300 ML ORAL SOLUTION PO ONE (07:14)
[2024-12-05 08:00] VITALS: BP 114/73; RESP 18; TEMP 98.2; O2SAT 98
[2024-12-05] MEDS: CloZAPine 100 MG TABLET PO SCH ×2 (09:00→21:27)
[2024-12-05] MEDS ORDERED: SERT-440 PO ×2 (17:39→19:45)
[2024-12-05] MEDS ORDERED: DIVA-153 PO ×2 (17:39→19:45)
[2024-12-05] MEDS ORDERED: OLAN10TA26 PO (17:39)
[2024-12-05] MEDS ORDERED: CLOZ100T61 PO (17:39)
[2024-12-05] MEDS ORDERED: OMEG100033 PO (17:39)
[2024-12-05] MEDS ORDERED: LITH300T PO ×2 (17:39→19:45)
[2024-12-05] MEDS ORDERED: MELA5TAB40 PO (17:39)
[2024-12-05] MEDS ORDERED: KETOCONAZOLE 2% 120 ML SHAMPOO TP SCH (17:45)
[2024-12-05] MEDS ORDERED: ONDANSETRON 4 MG TABLET PO PRN (17:45)
[2024-12-05] MEDS: ONDANSETRON 4 MG TABLET PO PRN (18:39)
[2024-12-05 21:49] VITALS: BP 117/80; PULSE 100; RESP 18; TEMP 98.7; O2SAT 98
[2024-12-06] MEDS: KETOCONAZOLE 2% 120 ML SHAMPOO TP SCH (09:00)
[2024-12-06] MEDS: LITHIUM CARBONATE 300 MG TABLET PO SCH (09:30)
[2024-12-06] MEDS: SERTRALINE HCL 100 MG TABLET PO SCH (09:30)
[2024-12-06] MEDS: DIVALPROEX SODIUM 500 MG ER TABLET PO SCH (09:31)
[2024-12-06 10:22] VITALS: BP 109/60; PULSE 102; RESP 18; TEMP 97.6; O2SAT 98
[2024-12-06] MEDS ORDERED: LITH300C3 PO (20:51)
[2024-12-06] MEDS: CloZAPine 100 MG TABLET PO SCH (21:30)
[2024-12-06 22:55] VITALS: BP 129/71; PULSE 100; RESP 18; TEMP 98.4; O2SAT 96
[2024-12-07] MEDS: DIVALPROEX SODIUM 500 MG ER TABLET PO SCH (06:33)
[2024-12-07] MEDS: SENNOSIDES/DOCUSATE SODIUM 8.6-50 MG TABLET PO SCH (09:01)
[2024-12-07] MEDS: LITHIUM CARBONATE 300 MG TABLET PO SCH (09:02)
[2024-12-08 09:09] LABS: CLOZAPINE & NORCLOZAPINE 435 ng/mL; NORCLOZAPINE 98 ng/mL (Not Estab.)
== END 2024-12-07 14:19 | disposition home or self-care (01) | DRG 750 ==
LOC: EMS 07:13 → 3EI 11-23 10:51
PROVIDERS: ADMIT Psychiatry & Neurology Psychiatry; ATTEND Psychiatry & Neurology Psychiatry
PROC: GZHZZZZ Group Psychotherapy (ICD-10-PCS; principal; 2024-11-23)
PROC: GZ58ZZZ Individual Psychotherapy, Cognitive-Behavioral (ICD-10-PCS; 2024-11-23)
PROC: GZ56ZZZ Individual Psychotherapy, Supportive (ICD-10-PCS; 2024-11-23)
DX: F25.0 Schizoaffective disorder, bipolar type (principal); Z91.148 Patient's other noncompliance with medication regimen for other reason; E78.00 Pure hypercholesterolemia, unspecified; I10 Essential (primary) hypertension; J44.9 Chronic obstructive pulmonary disease, unspecified; F32.A Depression, unspecified; F17.200 Nicotine dependence, unspecified, uncomplicated; F41.9 Anxiety disorder, unspecified; K59.00 Constipation, unspecified; K21.9 Gastro-esophageal reflux disease without esophagitis; Z55.9 Problems related to education and literacy, unspecified; Z59.9 Problem related to housing and economic circumstances, unspecified; Z63.9 Problem related to primary support group, unspecified; Z65.3 Problems related to other legal circumstances; Z90.49 Acquired absence of other specified parts of digestive tract
CPT/HCPCS: 80048; 80061; 80159; 80164; 80178; 83036; 84443; 85025; 99285; G0480; Q0162